=== PATIENT | female | born 1980 | race Caucasian/White ===

== ENCOUNTER 2017-06-23 13:58 | Emergency (ER) | payer BC ==
[~2017-06-23] VITALS: Ht 160 cm; Wt 79.0 kg
[~2017-06-23 13:58] MED LIST: ADDE20CA PO; HYDR-3533 PO; LAMO25 PO; RANI150 PO; VALI5TAB PO; WELL150T PO; ZOFR4TAB3 SL
[2017-06-23 14:05] VITALS: BP 114/78; PULSE 76; RESP 16; TEMP 98.6
[2017-06-23] MEDS ORDERED: SODIUM CHLOR 0.9% 1000 ML INJ 1,000 ML IV ONE (14:24)
[2017-06-23] MEDS ORDERED: diphenhydrAMINE HCL 50 MG/ML VIAL IVP ONE (14:30)
[2017-06-23] MEDS ORDERED: SODIUM CHLORIDE 0.9% FLUSH 10 ML FLUSH IVF PRN (14:30)
[2017-06-23] MEDS ORDERED: PROCHLORPERAZINE INJ 10 MG/2 ML VIAL IVP ONE (14:30)
--- NOTE | 2017-06-23 14:33 | PD ---
HPI Chief Complaint: Syncope/Near-Syncope Time Seen by Provider: 14:04 Travel History International Travel<30 days: No Contact w/Intl Traveler<30days: No Traveled to known affect area: No History of Present Illness HPI 37-year-old female presents to the emergency department via EMS for evaluation after syncopal episode. Patient works for the [employer]. 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 She has been suffering with a right sided migraine headache since this morning. She currently rates the pain 7/10. This is location of her typical migraine headache and is not the worst headache of her life. She states she has been getting migraine headaches for the past year, but they have been worsening. She denies any history of syncope. Patient states she had a headache and then next thing she knew she was waking up on the ground. According to EMS, there is no seizure activity. Upon their arrival, she was alert and oriented. The patient does report 7 out of 10 throbbing, squeezing right-sided headache that is typical for her migraine headaches. She denies any neck pain or back pain. No chest pain or abdominal pain. No shortness of breath. Patient denies any weakness. She reports history of hypotension, depression. Severity is moderate. Patient denies any exacerbating alleviating factors. She states that she is not prescribed any medications for headache. Her primary care physician thought she is having orthostatic migraines and has prescribed her fludrocortisone for her hypotension. She reports history of hysterectomy. [facility] Past Medical History ADD: Yes Anxiety: Yes Depression: Yes Diminished Hearing: No ?: Unknown : 3 Para: 1 Miscarriage: 2 Past Surgical History Section: Yes (2003) Other Surgery: Yes (Cone biopsy) Social History Alcohol Use: No Tobacco Use: No Substance Use: No Allergies-Medications (Allergen,Severity, Reaction): Coded Allergies: erythromycin base (Unverified Allergy, Severe, Rash, 03/08/17) codeine (Unverified Allergy, Intermediate, Nausea/Vomiting, 03/08/17) hydrocodone (Unverified Allergy, Intermediate, Nausea/Vomiting, 03/08/17) Reported Meds & Prescriptions Reported Meds & Active Scripts Active Zofran ODT (Ondansetron HCl) 4 Mg Tab 4 Mg SL Q6H PRN FOR NAUSEA/VOMITING Lortab 5 mg/325 mg (Hydrocodone/Acetaminophen 5 mg/325 mg) 1 Tab 1 Tab PO Q6H PRN Reported Zantac 150 Mg Tab (Ranitidine HCl) 150 Mg Tab 150 Mg PO DAILY Lamictal (Lamotrigine) 25 Mg Tab 100 Mg PO DAILY Wellbutrin-Sr (Bupropion HCl) 150 Mg Tabcr 300 Mg PO DAILY Adderall Xr (Amphetamine/Dextroamphetamine) 20 Mg Cap 20 Mg PO DAILY Valium (Diazepam) 5 Mg Tab 5 Mg PO HS Review of Systems Except as stated in HPI: all other systems reviewed are Neg Physical Exam Narrative GENERAL: Well-nourished, well-developed female patient, afebrile. She is lying on a backboard with a c-collar in place. SKIN: Focused skin assessment warm/dry. HEAD: Normocephalic. Atraumatic. ENT: Mucosa pink and moist. No erythema or exudates. No uvular edema. No uvular , palatal, or tonsillar deviation. Airway patent. Nasal turbinates appear normal without nasal blood, purulent drainage or septal hematoma. Bilateral tympanic membranes are clear without erythema or perforation. EYES: No scleral icterus. No injection or drainage. PERRLA. NECK: Supple, trachea midline. No JVD or lymphadenopathy. CARDIOVASCULAR: Regular rate and rhythm without murmurs, gallops, or rubs. Bilateral radial and pedal pulses are 2+. RESPIRATORY: Breath sounds equal bilaterally. No accessory muscle use. Lungs sounds are clear to auscultation. GASTROINTESTINAL: Abdomen soft, non-tender, nondistended. MUSCULOSKELETAL: No cyanosis, or edema. Bilateral upper and lower extremity strength 5/5. All extremities are neurovascularly intact. BACK: Nontender without obvious deformity. No CVA tenderness. She has no midline cervical spine tenderness. She has full lateral rotation of the cervical spine without pain or stiffness. C-collar is removed. NEUROLOGICAL: Awake and alert. Cranial nerves II through XII intact. Motor and sensory grossly within normal limits. Five out of 5 muscle strength in all muscle groups. Normal speech. Finger to nose is normal bilaterally. Heel-to- slater is normal bilaterally. Data Data Last Documented VS Vital Signs Date Time Temp Pulse Resp B/P (MAP) Pulse Ox O2 Delivery O2 Flow Rate FiO2 06/23/17 16:13 71 96/59 (71) 82 111/73 (86) 81 110/74 (86) 06/23/17 14:37 16 98 Room Air 06/23/17 14:05 98.6 Orders Orders Electrocardiogram (06/23/17 14:24) Complete Blood Count With Diff (06/23/17 14:24) Comprehensive Metabolic Panel (06/23/17 14:24) Magnesium (Mg) (06/23/17 14:24) Ckmb (Isoenzyme) Profile (06/23/17 14:24) Troponin I (06/23/17 14:24) Act Partial Throm Time (Ptt) (06/23/17 14:24) Prothrombin Time / Inr (Pt) (06/23/17 14:24) Urinalysis - C+S If Indicated (06/23/17 14:24) Ct Brain W/O Iv Contrast(Rout) (06/23/17 14:24) Ecg Monitoring (06/23/17 14:24) Iv Access Insert/Monitor (06/23/17 14:24) Oximetry (06/23/17 14:24) Sodium Chloride 0.9% Flush (Ns Flush) (06/23/17 14:30) Sodium Chlor 0.9% 1000 Ml Inj (Ns 1000 M (06/23/17 14:24) Orthostatic Vital Signs (06/23/17 14:24) Prochlorperazine Inj (Compazine Inj) (06/23/17 14:30) Diphenhydramine Inj (Benadryl Inj) (06/23/17 14:30) Ketorolac Inj (Toradol Inj) (06/23/17 16:15) Labs Laboratory Tests Test 06/23/17 14:20 06/23/17 14:30 Urine Color LIGHT-YELLOW Urine Turbidity CLEAR Urine pH 6.5 Urine Specific [place] 1.004 Urine Protein NEG mg/dL Urine Glucose (UA) NEG mg/dL Urine Ketones NEG mg/dL Urine Occult Blood NEG Urine Nitrite NEG Urine Bilirubin NEG Urine Urobilinogen LESS THAN 2.0 MG/DL Urine Leukocyte Esterase NEG Urine RBC LESS THAN 1 /hpf Urine Squamous Epithelial Cells 1 /hpf Microscopic Urinalysis Comment CULT NOT INDICATED White Blood Count 8.8 TH/MM3 Red Blood Count 4.55 MIL/MM3 Hemoglobin 13.8 GM/DL Hematocrit 40.0 % Mean Corpuscular Volume 87.8 FL Mean Corpuscular Hemoglobin 30.3 PG Mean Corpuscular Hemoglobin Concent 34.6 % Red Cell Distribution Width 13.9 % Platelet Count 345 TH/MM3 Mean Platelet Volume 7.6 FL Neutrophils (%) (Auto) 66.5 % Lymphocytes (%) (Auto) 22.4 % Monocytes (%) (Auto) 5.7 % Eosinophils (%) (Auto) 4.9 % Basophils (%) (Auto) 0.5 % Neutrophils # (Auto) 5.8 TH/MM3 Lymphocytes # (Auto) 2.0 TH/MM3 Monocytes # (Auto) 0.5 TH/MM3 Eosinophils # (Auto) 0.4 TH/MM3 Basophils # (Auto) 0.0 TH/MM3 CBC Comment DIFF FINAL Differential Comment Prothrombin Time 10.6 SEC Prothromb Time International Ratio 1.0 RATIO Activated Partial Thromboplast Time 23.3 SEC Blood Urea Nitrogen 8 MG/DL Creatinine 0.91 MG/DL Random Glucose 109 MG/DL Total Protein 7.2 GM/DL Albumin 3.6 GM/DL Calcium Level 8.9 MG/DL Magnesium Level 2.0 MG/DL Alkaline Phosphatase 99 U/L Aspartate Amino Transf (AST/SGOT) 8 U/L Alanine Aminotransferase (ALT/SGPT) 18 U/L Total Bilirubin 0.3 MG/DL Sodium Level 138 MEQ/L Potassium Level 3.7 MEQ/L Chloride Level 105 MEQ/L Carbon Dioxide Level 28.0 MEQ/L Anion Gap 5 MEQ/L Estimat Glomerular Filtration Rate 69 ML/MIN Total Creatine Kinase 59 U/L Troponin I LESS THAN 0.02 NG/ML MDM Medical Decision Making Medical Screen Exam Complete: Yes Emergency Medical Condition: Yes Medical Record Reviewed: Yes Interpretation(s) Last Impressions Head CT 06/23/17 1424 Signed Impressions: Service Date/Time: , June 23, 2017 15:11 - CONCLUSION: Negative noncontrast CT Teodoro Gallardo MD Differential Diagnosis Orthostatic hypotension versus migraine headache versus intracranial abnormality versus ACS versus electrolyte abnormality versus dehydration Narrative Course 37-year-old female presents to the emergency department for evaluation of syncope via EMS. She reports migraine headache which is typical of her migraine headaches. Otherwise, she has no complaints. According to EMS, there was no seizure activity. Patient is cleared from backboard and c-collar. EKG, CBC, CMP, magnesium, CK, troponin, PTT, PT/INR, UA are ordered and pending. Orthostatic vital signs are ordered and pending. CT of the brain is ordered and pending. Patient is given normal saline 1 L IV bolus, Compazine 10 mg IV, Benadryl 25 mg IV. EKG shows sinus rhythm, heart rate 72, no acute ST changes. CBC is unremarkable. CMP shows no acute abnormality. Magnesium is 2.0. CK is 59. Troponin is less than 0.02. Coags show no acute abnormality. UA is negative. Orthostatic VS are negative for orthostatic hypotension. CT of the brain is negative. Upon reevaluation, patient states she feels much better and headache is almost completely gone. Patient was given Toradol 30 mg IV. I discussed the case with my attending physician, Dr. Walton, who verbalizes agreement and understanding. Patient is instructed to follow up with her primary care physician. The patient was discharged in stable condition with instructions, including return instructions and follow up instructions. Diagnosis Primary Impression: Syncope Qualified Codes: R55 - Syncope and collapse Additional Impression: Migraine headache Qualified Codes: G43.909 - Migraine, unspecified, not intractable, without status migrainosus Referrals: Primary Care Physician call for appointment Patient Instructions: General Instructions, Migraine Headache (ED), Syncope (ED ) Additional Instructions: Follow-up with your primary care physician. Return to the emergency department for any acute worsening of symptoms. Med/Other Pt SpecificInfo: No Change to Meds Disposition: 01 DISCHARGE HOME Condition: Stable Naya Keller CAROLINE Jun 23, 2017 14:33
[2017-06-23 14:37] VITALS: BP 112/67; PULSE 77; RESP 16; O2SAT 98
[2017-06-23 15:01] LABS: AUTOMATED NEUTROPHIL # 5.8 TH/MM3 (1.8-7.7); BASOPHIL % 0.5 % (0.0-2.0); EOSINOPHIL # 0.4 TH/MM3 (0-0.4); EOSINOPHIL % 4.9 % (0.0-4.0); HEMO FLAGS DIFF FINAL; LYMPH % 22.4 % (9.0-44.0); MEAN CELL VOLUME 87.8 FL (80.0-100.0); MEAN CORPUSCULAR HEMOGLOBIN 30.3 PG (27.0-34.0); MEAN CORPUSCULAR HGB CONC 34.6 % (32.0-36.0); MONO % 5.7 % (0.0-8.0); NEUT % 66.5 % (16.0-70.0); PLATELET COUNT 345 TH/MM3 (150-450); RED BLOOD COUNT 4.55 MIL/MM3 (4.00-5.30); RED CELL DISTRIBUTION WIDTH 13.9 % (11.6-17.2); WHITE BLOOD COUNT 8.8 TH/MM3 (4.0-11.0)
[2017-06-23 15:17] LABS: APTT (PATIENT) 23.3 SEC (24.3-30.1); PROTHROMBIN TIME - PATIENT 10.6 SEC (9.8-11.6)
[2017-06-23 15:19] LABS: ALT (GPT) 18 U/L (10-53); ANION GAP 5 MEQ/L (5-15); AST (GOT) 8 U/L (15-37); BLOOD UREA NITROGEN 8 MG/DL (7-18); CHLORIDE 105 MEQ/L (98-107); GLOMERULAR FILTRATION RATE 69 ML/MIN (>89); POTASSIUM 3.7 MEQ/L (3.5-5.1); SODIUM (NA) 138 MEQ/L (136-145)
[2017-06-23 15:20] LABS: BLOOD, URINE NEG (NEG); COMMENT (UR) CULT NOT INDICATED; CULTURE IF INDICATED CULT NOT INDICATED; GLUCOSE,URINE NEG (NEG); KETONE, URINE NEG (NEG); NITRITE,URINE NEG (NEG); PH, URINE 6.5 (5.0-8.5); SQUAMOUS EPITHELIAL CELL URINE 1 /hpf (0-5); URINE COLOR LIGHT-YELLOW (YELLW/STRAW)
[2017-06-23 15:22] LABS: ALKALINE PHOSPHATASE 99 U/L (45-117); TOTAL BILIRUBIN ADULT 0.3 MG/DL (0.2-1.0)
[2017-06-23 15:30] LABS: CREATINE KINASE 59 U/L (26-192)
--- NOTE | 2017-06-23 15:34 | RADRPT ---
EXAM DATE/TIME: 06/23/2017 15:11 [place] COMPARISON: No previous studies available for comparison. INDICATIONS : Headaches with light sensitivity for one day. RADIATION DOSE: 56.35 CTDIvol (mGy) MEDICAL HISTORY : None SURGICAL HISTORY : section. Hysterectomy. ENCOUNTER: Initial ACUITY: 1 day PAIN SCALE: 8/10 LOCATION: Bilateral cranial TECHNIQUE: Multiple contiguous axial images were obtained of the head. Using automated exposure control and adj ustment of the mA and/or kV according to patient size, radiation dose was kept as low as reasonably a chievable to obtain optimal diagnostic quality images. DICOM format image data is available electro nically for review and comparison. FINDINGS: CEREBRUM: The ventricles are normal for age. No evidence of midline shift, mass lesion, hemorrhage or acute in farction. No extra-axial fluid collections are seen. POSTERIOR FOSSA: The cerebellum and brainstem are intact. The 4th ventricle is midline. The cerebellopontine angle i s unremarkable. EXTRACRANIAL: The visualized portion of the orbits is intact. SKULL: The calvaria is intact. No evidence of skull fracture. CONCLUSION: Negative noncontrast CT Teodoro Gallardo MD on June 23, 2017 at 15:31 Board Certified Radiologist. This report was verified electronically.
[2017-06-23 16:13] VITALS: BP_SYST 110; BP_SYST 111; BP_SYST 96; BP_DIAS 59; BP_DIAS 73; BP_DIAS 74
[2017-06-23] MEDS ORDERED: KETOROLAC TROMETHAMINE 30 MG/ML (IVP) VIAL IV PUSH ONE (16:15)
[2017-06-23 17:10] VITALS: BP 115/75
--- NOTE | 2017-06-24 15:46 | EKG ---
Date Performed: 06/23/2017 Time Performed: 15:12:42 PTAGE: 37 years EKG: NORMAL Sinus rhythm NONSPECIFIC ST-T WAVE CHANGES NORMAL ECG NO PREVIOUS TRACING DOCTOR: Re Humphrey Interpretating Date/Time 06/24/2017 15:43:52
== END 2017-06-23 17:41 | disposition home or self-care (01) ==
LOC: NEPE 13:58
DX: R55 Syncope and collapse (principal); G43.909 Migraine, unspecified, not intractable, without status migrainosus; F32.9 Major depressive disorder, single episode, unspecified
CPT/HCPCS: 70450; 80053; 81001; 82550; 83735; 84484; 85025; 85610; 85730; 93005; 96361; 96374; 96375; 99285; J0780; J1200; J1885; J7030